=== PATIENT | female | born 1940 | race Caucasian/White ===

== ENCOUNTER 2018-09-03 01:03 | Emergency (ER) | payer MEDICARE, OTHER ==
[~2018-09-03] VITALS: Ht 172.7 cm; Wt 67.1 kg
--- OUTSIDE RECORDS SUMMARY | ~2018-09-03 | XMS | Clinical Summary ---
Demographics + + + | Address | [address] | | | [place] [address] | + + + | Home Phone | | + + + | Preferred Language | Unknown | + + + | Marital Status | | + + + | Hindu Affiliation | Unknown | + + + | Race | Unknown | + + + | Ethnic Group | Unknown | + + + Author + + + | Author | [facility] | | | and [place] | + + + | Organization | [facility] | | | and [place] | + + + | Address | Unknown | + + + | Phone | Unavailable | + + + Care Team Providers + +------+ + | Care Steam Heating Installer Name | Role | Phone | + +------+ + PP | Unavailable | + +------+ + Allergies No Known Allergies Current Medications + + +-------+---------+------+------+-------+ | Prescription | Sig. | Disp. | Refills | Star | End | Statu | | | | | | t | Date | s | | | | | | Date | | | + + +-------+---------+------+------+-------+ | levothyroxine | Take 88 mcg by mouth | | | 02/22 | | Activ | | (SYNTHROID, | Daily. | | | 09/10 | | e | | LEVOTHROID) 88 mcg | | | | 12 | | | | tablet | | | | | | | + + +-------+---------+------+------+-------+ Active Problems + + + | Problem | Noted Date | + + + | ARTHRITIS, RIGHT KNEE | | + + + Social History + +-------+ +--------+------+ | Tobacco Use | Types | Packs/Day | Years | Date | | | | | Used | | + +-------+ +--------+------+ | Never Assessed | | | | | + +-------+ +--------+------+ + + + | Sex Assigned at | Date Recorded | | | | + + + | Not on file | | + + + Last Filed Vital Signs + + + + | Vital Sign | Reading | Time Taken | + + + + | Blood Pressure | 160/84 | 09/11/2010 0000 PDT | + + + + | Pulse | - | - | + + + + | Temperature | - | - | + + + + | Respiratory Rate | - | - | + + + + | Oxygen Saturation | - | - | + + + + | Inhaled Oxygen | - | - | | Concentration | | | + + + + | Weight | 68 kg (150 lb) | 01/01/2011 0000 PDT | + + + + | Height | 172.7 cm (5' 8") | 01/12/2010 0000 PDT | + + + + | Body Mass Index | 22.81 | 01/01/2011 0000 PDT | + + + + Plan of Treatment + + + + + | Health Maintenance | Due Date | Last Done | Comments | + + + + + | Vaccine: | | | | | Dtap/Tdap/Td (1 - | 7 | | | | Tdap) | | | | + + + + + | Vaccine: Zoster (1 | | | | | of 2) | 8 | | | + + + + + | Vaccine: | | | | | Pneumococcal 65+ | 3 | | | | Low/Medium Risk (1 | | | | | of 2 - PCV13) | | | | + + + + + | Vaccine: Influenza | | | | | (#1) | 8 | | | + + + + + Results Not on filefrom Last 3 Months
--- OUTSIDE RECORDS SUMMARY | ~2018-09-03 | XMS | Clinical Summary ---
Demographics + + + | Address | [address] | | | [place] [address] | + + + | Home Phone | | + + + | Preferred Language | Unknown | + + + | Marital Status | | + + + | Baptist Affiliation | Unknown | + + + | Race | Unknown | + + + | Ethnic Group | Unknown | + + + Author + + + | Author | [facility] | | | and [place] | + + + | Organization | [facility] | | | and [place] | + + + | Address | Unknown | + + + | Phone | Unavailable | + + + Care Team Providers + +------+ + | Care Public Health Program Manager Name | Role | Phone | + [...]
[~2018-09-03 01:03] MED LIST: ASPIRIN EC81 MG PO; LEVOTHYROXINE50 MCG PO; LEVOTHYROXINE88 MCG PO; METOPROLOL TART25 MG PO; NAPROXEN375 MG PO; NORCO 5-325 TA1 EACH PO
--- NOTE | 2018-09-03 07:37 | EKG ---
[facility] [address] [facility] [place] [address] Signed Atrial flutter with variable AV block Left axis deviation Left ventricular hypertrophy with repolarization abnormality Abnormal ECG No previous ECGs available Confirmed by MAGDALENA SHELLEY MD ([id number]) on 09/03/2018 7:37:38 AM Electronically Signed By: MAGDALENA SHELLEY MD 09/03/18 0737 PATIENT NAME: LUDWIG ALEX Electrocardiogram DATE OF : 36 PHYSICIAN: MAGDALENA SHELLEY MD REPORT #: [id number] REPORT IS CONFIDENTIAL AND NOT TO BE RELEASED WITHOUT AUTHORIZATION
== END 2018-09-03 02:49 | disposition home or self-care (01) ==
LOC: ED 01:03
DX: I48.91 Unspecified atrial fibrillation (principal); E03.9 Hypothyroidism, unspecified; Z79.899 Other long term (current) drug therapy; Z79.82 Long term (current) use of aspirin
CPT/HCPCS: 71045; 80053; 83735; 84443; 84484; 85025; 93005; 93010; 99285-25

== ENCOUNTER 2025-04-16 13:17 | Emergency (ER) | payer MEDICARE, OTHER ==
[~2025-04-16] VITALS: Ht 172.7 cm; Wt 63.8 kg
[2025-04-16] MEDS ORDERED: ELIQUIS2.5 MG PO (14:18)
[2025-04-16 14:37] LABS: BASOPHILS 1.2 % (0.1-1.2); EOSINOPHILS 2.1 % (0.7-5.8); LYMPHOCYTES 32.4 % (19.3-51.7); MCH 31.1 PG (25.6-32.2); MCHC 32.9 g/dL (32.2-35.5); MCV 94.4 fL (79.4-94.8); MONOCYTES 15.5 % (4.7-12.5); NEUTROPHILS 48.8 % (34.0-71.1); RBC 4.28 M/uL (3.93-5.22)
[2025-04-16 14:51] LABS: ALT (SGPT) 21.0 U/L (14-59); AST (SGOT) 22.0 U/L (15-37); GLOMERULAR FILTRATION RATE,EST 85.0 mL/min (>60); PROTEIN, TOTAL 7.1 g/dL (6.4-8.2); UREA NITROGEN 16.0 mg/dL (7-18)
[2025-04-16] MEDS ORDERED: CEPHALEXIN500 M1 PO (16:56)
[2025-04-16] MEDS ORDERED: CEPHALEXIN MONOHYDRATE 500 MG CAP PO ONE (17:00)
[2025-04-16 17:07] VITALS: BP 183/111
--- NOTE | 2025-04-17 19:41 | EKG ---
[facility] [address] [facility] [place] [address] Signed Ventricular-paced rhythm with frequent AV dual-paced complexes Abnormal ECG When compared with ECG of 03-SEP-2018 01:13, Electronic ventricular pacemaker has replaced Atrial flutter Confirmed by Felicitas Nix DO ([id number]) on 04/17/2025 7:40:46 PM Electronically Signed By: FELICITAS NIX DO 04/17/251940 PATIENT NAME: LUDWIG ALEX Electrocardiogram DATE OF : 36 PHYSICIAN: FELICITAS NIX DO REPORT #: [id number] REPORT IS CONFIDENTIAL AND NOT TO BE RELEASED WITHOUT AUTHORIZATION
== END 2025-04-16 17:12 | disposition home or self-care (01) ==
LOC: ED 13:17
PROVIDERS: Emergency Medicine
DX: L03.116 Cellulitis of left lower limb (principal)
CPT/HCPCS: 36415; 80053; 85025; 93005; 93010; 99283; A9270

== ENCOUNTER 2025-06-18 11:49 | Emergency (ER) | payer MEDICARE, OTHER ==
[~2025-06-18] VITALS: Ht 172.7 cm; Wt 70.0 kg
[~2025-06-18 11:49] MED LIST changes: +CEPHALEXIN500 M1 PO; +ELIQUIS2.5 MG PO
[2025-06-18 16:06] LABS: BASOPHILS 1.1 % (0.1-1.2); EOSINOPHILS 1.4 % (0.7-5.8); LYMPHOCYTES 34.7 % (19.3-51.7); MCH 30.9 PG (25.6-32.2); MCHC 32.9 g/dL (32.2-35.5); MCV 93.9 fL (79.4-94.8); MONOCYTES 13.5 % (4.7-12.5); NEUTROPHILS 49.0 % (34.0-71.1); RBC 4.44 M/uL (3.93-5.22)
[2025-06-18 16:34] LABS: ALT (SGPT) 30.0 U/L (14-59); AST (SGOT) 26.0 U/L (15-37); GLOMERULAR FILTRATION RATE,EST 87.0 mL/min (>60); PROTEIN, TOTAL 7.0 g/dL (6.4-8.2); UREA NITROGEN 15.0 mg/dL (7-18)
[2025-06-18] MEDS ORDERED: AMLODIPINE BESYLATE 5 MG TAB PO ONE (18:00)
[2025-06-18] MEDS ORDERED: FUROSEMIDE 20 MG/2 ML VIAL IV ONE (18:00)
[2025-06-18] MEDS ORDERED: FUROSEMIDE 40 MG TAB PO ONE (18:15)
[2025-06-18] MEDS ORDERED: LASIX20 MG PO (18:54)
[2025-06-18] MEDS ORDERED: POTASSIUM CHLO20 ME2 PO (18:54)
[2025-06-18] MEDS ORDERED: NORVASC5 MG PO (18:54)
[2025-06-18 19:07] VITALS: BP 164/131
== END 2025-06-18 19:05 | disposition home or self-care (01) ==
LOC: ED 11:49
PROVIDERS: Emergency Medicine
DX: R60.0 Localized edema (principal); I10 Essential (primary) hypertension; Z79.899 Other long term (current) drug therapy
CPT/HCPCS: 36415; 80053; 83880; 85025; 99283; J1938